=== PATIENT | male | born 1965 | race Caucasian/White ===

== ENCOUNTER 2016-09-20 02:21 | Inpatient (IN) | payer OTHER, MEDICARE ==
[2016-09-20] VITALS (7 sets, daily range): BP systolic 128–170; BP diastolic 74–90; PULSE 67–83; RESP 17–20; TEMP 96–98.2; O2SAT 2–100
[~2016-09-20] VITALS: Ht 185.4 cm; Wt 94.9 kg
[~2016-09-20 02:21] MED LIST: ALPR.25 PO; ATOR80TA PO; GABA600T PO; IBUP600T26 PO; PANT20 PO; PERC5TAB12 PO; SERO400T PO; TEMA15 PO; TIZA4 PO; TOPA25TA8 PO; VENL-39 PO; XANA1TAB6 PO; [UNRECOGNIZED DRUG - CODE] PO
[2016-09-20] MEDS ORDERED: SODIUM CHLOR 0.45% 1000 ML INJ 1,000 ML IV SCH (02:55)
[2016-09-20] MEDS ORDERED: ACETAMINOPHEN 325 MG TAB PO PRN (03:00)
[2016-09-20] MEDS ORDERED: ONDANSETRON HCL 4 MG/2 ML VIAL IVP PRN (03:00)
[2016-09-20] MEDS ORDERED: NALOXONE HCL 0.4 MG/ML AMP IV PRN (03:00)
[2016-09-20] MEDS ORDERED: SODIUM CHLORIDE 0.9% FLUSH 10 ML FLUSH IV FLUSH PRN (03:00)
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
[2016-09-20] MEDS: MORPHINE SULFATE 4 MG/ML INJ IV PUSH PRN ×4 (04:33→21:21)
[2016-09-20] MEDS: ACETAMINOPHEN/HYDROcodone 325 MG/5 MG TAB PO PRN ×2 (06:13→10:44)
[2016-09-20] MEDS: SODIUM CHLORIDE 0.9% FLUSH 10 ML FLUSH IV FLUSH SCH ×2 (08:24→21:00)
[2016-09-20] MEDS ORDERED: ALPR.25 PO (08:56)
[2016-09-20] MEDS ORDERED: XANA1TAB2 PO (09:02)
[2016-09-20] MEDS ORDERED: [UNRECOGNIZED DRUG - CODE] (09:26)
[2016-09-20] MEDS ORDERED: ATOR1TAB18 PO (09:26)
[2016-09-20] MEDS ORDERED: GABA600T PO (09:26)
[2016-09-20] MEDS ORDERED: TIZA4 PO (09:26)
[2016-09-20] MEDS ORDERED: REST15CA PO (09:26)
[2016-09-20] MEDS ORDERED: SERO400T PO (09:26)
[2016-09-20] MEDS ORDERED: TOPA25TA8 PO (09:26)
[2016-09-20] MEDS ORDERED: VENL75TA PO (09:26)
[2016-09-20] MEDS ORDERED: IBUP-232 PO (09:26)
[2016-09-20] MEDS ORDERED: PROT40TA PO (09:26)
[2016-09-20] MEDS: TOPIRAMATE 25 MG TAB PO SCH (10:44)
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
[2016-09-20] MEDS ORDERED: ePHEDrine/NS 25 MG/5 ML SYR IV ONE (12:00)
[2016-09-20] MEDS ORDERED: PHENYLEPH/NS 1000 MCG/10 ML SYR IV ONE (12:00)
[2016-09-20] MEDS ORDERED: LACTATED RINGER'S 1000 ML INJ 1,000 ML IV ONE (12:00)
[2016-09-20] MEDS ORDERED: PROPOFOL 200 MG/20 ML AMP IV ONE (12:00)
[2016-09-20] MEDS ORDERED: KETOROLAC TROMETHAMINE 60 MG/2 ML (IM) VIAL IM ONE (12:00)
[2016-09-20] MEDS ORDERED: ONDANSETRON HCL 4 MG/2 ML VIAL IV PUSH ONE (12:00)
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
[2016-09-20] MEDS: GABAPENTIN 300 MG CAP PO SCH ×2 (13:31→18:00)
[2016-09-20] MEDS: ALPRAZolam 1 MG TAB PO SCH ×3 (13:31→21:30)
[2016-09-20] MEDS: NICOTINE 21 MG/24 HR PATCH T-DERMAL SCH (13:31)
[2016-09-20] MEDS: ALPRAZolam 0.25 MG TAB PO SCH ×3 (13:31→21:30)
[2016-09-20] MEDS ORDERED: CHLORHEXIDINE GLUCONATE 0.12% 15 ML CUP ONE ×2 (16:46→17:52)
[2016-09-20] MEDS ORDERED: ceFAZolin INJ 1,000 MG VIAL ONE (17:32)
[2016-09-20] MEDS ORDERED: ceFAZolin INJ 1,000 MG VIAL IV ONE (17:35)
[2016-09-20] MEDS ORDERED: LIDOCAINE 2%/EPINEPHrine 1:100,000 30ML MDV INFIL ONE (17:50)
[2016-09-20] MEDS ORDERED: DO NOT ADM ANY ANTICOAGULANT DRUGS PRN (19:06)
[2016-09-20] MEDS ORDERED: BUPIVACAINE/EPINEPHRINE 0.5% PF 30 ML VIAL ONE (19:06)
[2016-09-20] MEDS ORDERED: BUPIVACAINE HCL PF 0.5% 30 ML VIAL INFIL ONE (19:08)
[2016-09-20] MEDS ORDERED: fentaNYL CITRATE 250 MCG/5 ML AMP ONE (19:42)
[2016-09-20] MEDS ORDERED: MIDAZOLAM HCL 2 MG/2 ML VIAL ONE (19:42)
--- NOTE | 2016-09-20 19:42 | HHI.PR ---
Immediate Post Op Note Procedure Date: September 20, 2016 Pre Op Diagnosis: left mandible angle fracture Post Op Diagnosis: jovanni Surgeon: Semaj Kelly Diabetes Trainer(s): aide cabrera Procedure: open reduction internal fixation of left mandible fracture Findings: no tmj dislocation noted Complications: none Estimated blood loss: minimal Anesthesia: General, Local (2%lidocaine with 1:100,000 epi 7 cc; 0.5%marcaine with 1:200,000 epi 4 cc) Drains: None Patient to: PACU Patient Condition: Good Semaj Kelly DMD September 20, 2016 19:42
[2016-09-20] MEDS ORDERED: *MEPERIDINE 25 MG INJ VIAL PERIprocedural Use ONLY ONE (19:52)
[2016-09-20] MEDS: methylPREDNISolone SOD SUCC 125 MG/2 ML VIAL IV SCH ×2 (20:20→21:31)
[2016-09-20] MEDS: VENLAFAXINE HCL XR 75 MG CAP PO SCH (21:30)
[2016-09-20] MEDS: QUEtiapine FUMARATE 200 MG TAB PO SCH (21:30)
[2016-09-20] MEDS: ATORVASTATIN 80 MG TAB PO SCH (21:30)
[2016-09-20] MEDS: REMOVE OLD PATCH T-DERMAL SCH (21:31)
[2016-09-21] VITALS (7 sets, daily range): BP systolic 118–144; BP diastolic 60–86; PULSE 64–89; RESP 16–20; TEMP 95.7–98; O2SAT 92–98
[2016-09-21] MEDS: MORPHINE SULFATE 4 MG/ML INJ IV PUSH PRN ×2 (05:06→11:34)
[2016-09-21] MEDS: ALPRAZolam 1 MG TAB PO SCH ×3 (06:08→20:01)
[2016-09-21] MEDS: ALPRAZolam 0.25 MG TAB PO SCH ×3 (06:08→20:00)
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
[2016-09-21 07:05] LABS: AUTOMATED NEUTROPHIL # 9.6 TH/MM3 (1.8-7.7); BASOPHIL % 0.1 % (0.0-2.0); HEMATOCRIT 39.5 % (39.0-51.0); HEMO FLAGS DIFF FINAL; LYMPH % 2.9 % (9.0-44.0); LYMPHOCYTE # 0.3 TH/MM3 (1.0-4.8); MEAN CELL VOLUME 89.8 FL (80.0-100.0); MEAN CORPUSCULAR HEMOGLOBIN 28.6 PG (27.0-34.0); MEAN CORPUSCULAR HGB CONC 31.9 % (32.0-36.0); MONO % 1.4 % (0.0-8.0); NEUT % 95.6 % (16.0-70.0); PLATELET COUNT 164 TH/MM3 (150-450); RED CELL DISTRIBUTION WIDTH 18.4 % (11.6-17.2)
[2016-09-21 07:27] LABS: BICARBONATE 25.2 MEQ/L (21.0-32.0); POTASSIUM 3.9 MEQ/L (3.5-5.1)
[2016-09-21] MEDS ORDERED: ceFAZolin 1,000 MG/NS 100 ML IV ONE ×2 (07:30)
[2016-09-21] MEDS: SODIUM CHLORIDE 0.9% FLUSH 10 ML FLUSH IV FLUSH SCH ×2 (08:13→20:03)
[2016-09-21] MEDS: GABAPENTIN 300 MG CAP PO SCH ×3 (08:13→18:03)
[2016-09-21] MEDS: TOPIRAMATE 25 MG TAB PO SCH (08:13)
[2016-09-21] MEDS: NICOTINE 21 MG/24 HR PATCH T-DERMAL SCH (08:13)
[2016-09-21] MEDS ORDERED: methylPREDNISolone ACETATE 80 MG/ML VIAL IM ONE (09:00)
[2016-09-21] MEDS: ACETAMINOPHEN/HYDROcodone 325 MG/5 MG TAB PO PRN ×3 (09:57→18:03)
[2016-09-21] MEDS ORDERED: HYDR-3516 PO (11:45)
[2016-09-21] MEDS ORDERED: PERI8.6T PO (11:45)
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
[2016-09-21] MEDS ORDERED: PERI0.126 SWISH-SPIT (12:35)
[2016-09-21] MEDS: VENLAFAXINE HCL XR 75 MG CAP PO SCH (20:00)
[2016-09-21] MEDS: ATORVASTATIN 80 MG TAB PO SCH (20:01)
[2016-09-21] MEDS: REMOVE OLD PATCH T-DERMAL SCH (20:03)
[2016-09-21] MEDS: QUEtiapine FUMARATE 200 MG TAB PO SCH (20:49)
[2016-09-21] MEDS ORDERED: MELATONIN 5 MG TAB PO ONE (21:00)
[2016-09-22] VITALS: BP 135/86; PULSE 76; RESP 18; TEMP 96.7; O2SAT 97
[2016-09-22 04:00] VITALS: BP 150/98; PULSE 87; RESP 20; TEMP 96.7; O2SAT 98
[2016-09-22] MEDS: ACETAMINOPHEN/HYDROcodone 325 MG/5 MG TAB PO PRN ×5 (05:24→22:08)
[2016-09-22] MEDS: ALPRAZolam 0.25 MG TAB PO SCH ×3 (05:24→20:52)
[2016-09-22] MEDS: ALPRAZolam 1 MG TAB PO SCH ×3 (05:24→20:52)
[2016-09-22] MEDS: GABAPENTIN 300 MG CAP PO SCH ×3 (07:42→17:48)
[2016-09-22] MEDS: TOPIRAMATE 25 MG TAB PO SCH (07:43)
[2016-09-22] MEDS: SODIUM CHLORIDE 0.9% FLUSH 10 ML FLUSH IV FLUSH SCH ×2 (07:43→20:48)
[2016-09-22] MEDS: NICOTINE 21 MG/24 HR PATCH T-DERMAL SCH (07:43)
[2016-09-22 08:00] VITALS: BP 160/93; PULSE 76; RESP 21; TEMP 97.3; O2SAT 99
[2016-09-22 10:45] VITALS: O2SAT 99
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
[2016-09-22 17:45] VITALS: BP 165/90; PULSE 70; RESP 20; TEMP 97.9; O2SAT 98
[2016-09-22 19:35] VITALS: BP 176/96; PULSE 77; RESP 16; TEMP 98.5; O2SAT 98
[2016-09-22] MEDS: VENLAFAXINE HCL XR 75 MG CAP PO SCH (20:46)
[2016-09-22] MEDS: ATORVASTATIN 80 MG TAB PO SCH (20:46)
[2016-09-22] MEDS: REMOVE OLD PATCH T-DERMAL SCH (20:52)
[2016-09-22] MEDS: QUEtiapine FUMARATE 200 MG TAB PO SCH (22:08)
[2016-09-23] VITALS: BP 166/98; PULSE 73; RESP 17; TEMP 97.2; O2SAT 97
[2016-09-23] MEDS: ACETAMINOPHEN/HYDROcodone 325 MG/5 MG TAB PO PRN ×3 (02:16→12:11)
[2016-09-23] MEDS: ALPRAZolam 1 MG TAB PO SCH (05:53)
[2016-09-23] MEDS: ALPRAZolam 0.25 MG TAB PO SCH (05:53)
[2016-09-23] MEDS: NICOTINE 21 MG/24 HR PATCH T-DERMAL SCH (07:38)
[2016-09-23] MEDS: GABAPENTIN 300 MG CAP PO SCH (07:39)
[2016-09-23] MEDS: TOPIRAMATE 25 MG TAB PO SCH (07:40)
[2016-09-23 08:00] VITALS: BP 165/93; PULSE 62; RESP 19; TEMP 96; O2SAT 99
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
[2016-09-23] MEDS ORDERED: CHLORHEXIDINE GLUCONATE 0.12% 15 ML CUP SWISH-SPIT SCH (09:00)
[2016-09-23] MEDS: SODIUM CHLORIDE 0.9% FLUSH 10 ML FLUSH IV FLUSH SCH (09:00)
[2016-09-23 09:35] VITALS: O2SAT 98
[2016-09-23 12:00] VITALS: BP 158/72; PULSE 77; RESP 19; TEMP 97.2; O2SAT 98
[2016-09-23 12:48] LABS: HEMOGLOBIN A1a 1.2 %; HEMOGLOBIN A1b 0.9 %; HEMOGLOBIN Ao 85.4 %; HEMOGLOBIN F 1.1 %; HEMOGLOBIN P3 3.6 %
== END 2016-09-23 13:39 | disposition home or self-care (01) | DRG 132 ==
LOC: NEPC 02:21 → NEDA 02:51 → N06A 05:55
PROVIDERS: ADMIT Hospitalist; ATTEND Hospitalist
PROC: 0NSV04Z Reposition Left Mandible with Internal Fixation Device, Open Approach (ICD-10-PCS; principal; 2016-09-20 17:19)
DX: S02.652A Fracture of angle of left mandible, initial encounter for closed fracture (principal); I10 Essential (primary) hypertension; Y92.9 Unspecified place or not applicable; Y04.2XXA Assault by strike against or bumped into by another person, initial encounter; F31.9 Bipolar disorder, unspecified; F32.9 Major depressive disorder, single episode, unspecified; G47.33 Obstructive sleep apnea (adult) (pediatric); F17.210 Nicotine dependence, cigarettes, uncomplicated; F43.10 Post-traumatic stress disorder, unspecified; F41.9 Anxiety disorder, unspecified; J45.909 Unspecified asthma, uncomplicated; K21.9 Gastro-esophageal reflux disease without esophagitis; E78.5 Hyperlipidemia, unspecified; F10.10 Alcohol abuse, uncomplicated; G47.00 Insomnia, unspecified; F12.90 Cannabis use, unspecified, uncomplicated; H11.31 Conjunctival hemorrhage, right eye; R73.9 Hyperglycemia, unspecified; T38.0X5A Adverse effect of glucocorticoids and synthetic analogues, initial encounter
CPT/HCPCS: 80048; 83036; 85025; 99284; C1713; J0690; J1040; J1885; J2175; J2250; J2270; J2370; J2405; J2930; J3010; J7120

== ENCOUNTER 2017-01-09 12:59 | Observation (INO) | payer OTHER ==
[~2017-01-09] VITALS: Ht 180.3 cm; Wt 90.4 kg
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
[~2017-01-09 12:59] MED LIST changes: +ATOR1TAB18 PO; -ATOR80TA PO; +CHLORHEXIDINE GLUCONATE 0.12% 15 ML CUP ONE; +HYDR-3516 PO; +IBUP-232 PO; -IBUP600T26 PO; +LIDOCAINE 2%/EPINEPHrine PF 1:200,000 20ML SDV ONE; +ONDANSETRON HCL 4 MG/2 ML VIAL IV PUSH ONE; -PANT20 PO; -PERC5TAB12 PO; +PERI0.126 SWISH-SPIT; +PERI8.6T PO; +PROPOFOL 200 MG/20 ML AMP IV ONE; +PROT40TA PO; -TEMA15 PO; -VENL-39 PO; +VENL75TA PO; +XANA1TAB2 PO; -XANA1TAB6 PO; +[UNRECOGNIZED DRUG - CODE]; -[UNRECOGNIZED DRUG - CODE] PO; +ePHEDrine/NS 25 MG/5 ML SYR IV ONE
[2017-01-09] MEDS ORDERED: ceFAZolin 1,000 MG/NS 100 ML IV SCH ×2 (14:00)
[2017-01-09] MEDS ORDERED: CHLORHEXIDINE GLUCONATE 2 % 1 PACK (2 CLOTHS) TOPICAL PRN (14:00)
[2017-01-09] MEDS ORDERED: SODIUM CHLORID 0.9% 500 ML IV PRN (14:00)
[2017-01-09] MEDS ORDERED: INSULIN HUMAN REGULAR 1,000 UNITS/10 ML VIAL SQ PRN (14:00)
[2017-01-09] MEDS ORDERED: POVIDONE IODINE 5% (ANTISEPSIS KIT) 4 APPLICATIONS EACH NARE PRN (14:00)
[2017-01-09] MEDS ORDERED: LACTATED RINGER'S 1000 ML IV PRN (14:00)
[2017-01-09] MEDS ORDERED: VENTAER INH (14:05)
[2017-01-09] MEDS ORDERED: DIPH25CA PO (14:05)
[2017-01-09] MEDS ORDERED: HYDR-3583 PO (14:05)
[2017-01-09 14:23] LABS: AUTOMATED NEUTROPHIL # 2.8 TH/MM3 (1.8-7.7); BASOPHIL % 0.9 % (0.0-2.0); EOSINOPHIL # 0.3 TH/MM3 (0-0.4); HEMO FLAGS DIFF FINAL; LYMPH % 25.6 % (9.0-44.0); LYMPHOCYTE # 1.3 TH/MM3 (1.0-4.8); MEAN CELL VOLUME 93.3 FL (80.0-100.0); MEAN CORPUSCULAR HEMOGLOBIN 31.2 PG (27.0-34.0); MEAN CORPUSCULAR HGB CONC 33.5 % (32.0-36.0); MONO % 10.9 % (0.0-8.0); NEUT % 56.6 % (16.0-70.0); PLATELET COUNT 199 TH/MM3 (150-450); RED BLOOD COUNT 3.97 MIL/MM3 (4.50-5.90); RED CELL DISTRIBUTION WIDTH 15.6 % (11.6-17.2)
--- NOTE | 2017-01-09 14:27 | RADRPT ---
EXAM DATE/TIME: 01/09/2017 13:32 [place] COMPARISON: No previous studies available for comparison. INDICATIONS : Evaluate for pneumonia, pneumothorax or communicable disease. Preop chest for mandible surgery today MEDICAL HISTORY : None. SURGICAL HISTORY : None. ENCOUNTER: Initial ACUITY: 1 day PAIN SCORE: 0/10 LOCATION: Bilateral chest FINDINGS: A single view of the chest demonstrates the lungs to be symmetrically aerated without evidence of mas s, infiltrate or effusion. The cardiomediastinal contours are unremarkable. Osseous structures are intact. CONCLUSION: No acute disease. Kuldeep Figueroa MD FACR on January 09, 2017 at 14:25 Board Certified Radiologist. This report was verified electronically.
[2017-01-09] MEDS ORDERED: DOCUSATE SODIUM 50 MG/SENNA 8.6 MG TAB PO PRN (15:00)
[2017-01-09] MEDS ORDERED: ACETAMINOPHEN/HYDROcodone 325 MG/5 MG TAB PO PRN (15:00)
[2017-01-09] MEDS: SODIUM CHLOR 0.9% 1000 ML INJ 1,000 ML IV SCH (15:38)
[2017-01-09] MEDS ORDERED: RESP: ALBUTEROL 2.5 MG/3 ML NEB (SCH) ONE (15:43)
[2017-01-09] MEDS ORDERED: FLUMAZENIL 0.5 MG/5 ML VIAL IV PUSH PRN (15:45)
[2017-01-09] MEDS ORDERED: LORazepam 1 MG TAB PO PRN (15:45)
[2017-01-09] MEDS ORDERED: NALOXONE HCL 0.4 MG/ML AMP IV PRN (15:45)
[2017-01-09] MEDS ORDERED: LORazepam 2 MG TAB PO PRN (15:45)
[2017-01-09] MEDS ORDERED: PROCHLORPERAZINE 25 MG SUPP RECTAL PRN (15:45)
[2017-01-09] MEDS ORDERED: ACETAMINOPHEN 325 MG TAB PO PRN (15:45)
[2017-01-09] MEDS ORDERED: LACTULOSE SYRUP 20 GM/30 ML CUP PO PRN (15:45)
[2017-01-09] MEDS ORDERED: ONDANSETRON HCL 4 MG/2 ML VIAL IVP PRN (15:45)
[2017-01-09] MEDS ORDERED: oxyCODONE/ACETAMINOPHEN 5 MG/325 MG TAB PO PRN (15:45)
[2017-01-09] MEDS ORDERED: SODIUM CHLORIDE 0.9% FLUSH 10 ML FLUSH IV FLUSH PRN ×2 (15:45)
[2017-01-09] MEDS ORDERED: MAGNESIUM HYDROXIDE SUSP 30 ML CUP PO PRN (15:45)
[2017-01-09] MEDS ORDERED: MORPHINE SULFATE 4 MG/ML INJ IV PRN ×2 (15:45)
[2017-01-09] MEDS ORDERED: BISACODYL 10 MG SUPP RECTAL PRN (15:45)
[2017-01-09] MEDS ORDERED: ONDANSETRON HCL 4 MG/2 ML VIAL IV PRN (15:45)
[2017-01-09] MEDS ORDERED: LORazepam 2 MG/ML VIAL IV PUSH PRN ×4 (15:45)
[2017-01-09] MEDS ORDERED: SENNOSIDES 8.6 MG TAB PO PRN (15:45)
[2017-01-09] MEDS ORDERED: cloNIDine HCL 0.1 MG TAB PO PRN (15:45)
[2017-01-09] MEDS ORDERED: LIDOCAINE 2%/EPINEPHrine PF 1:200,000 20ML SDV ONE (16:01)
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
[2017-01-09] MEDS ORDERED: GELATIN 12 MM/7 MM FOAM ONE (17:28)
[2017-01-09] MEDS ORDERED: CHLORHEXIDINE GLUCONATE 0.12% 15 ML CUP ONE (17:31)
[2017-01-09] MEDS ORDERED: GELFOAM SIZE 100 ONE (17:32)
[2017-01-09] MEDS: GABAPENTIN 300 MG CAP PO SCH (18:00)
[2017-01-09] MEDS ORDERED: ALPRAZolam 1 MG TAB PO PRN (18:00)
[2017-01-09] MEDS ORDERED: ALPRAZolam 0.25 MG TAB PO PRN (18:00)
[2017-01-09] MEDS ORDERED: BUPIVACAINE HCL PF 0.5% 30 ML VIAL ONE (18:32)
[2017-01-09] MEDS ORDERED: BENZOCAINE 20% TOPICAL SPRAY 60 ML CAN TOPICAL ONE (18:32)
[2017-01-09] MEDS ORDERED: BUPIVACAINE/EPINEPHRINE 0.5% PF 10 ML VIAL INFIL ONE (18:41)
[2017-01-09] MEDS ORDERED: DO NOT ADM ANY ANTICOAGULANT DRUGS PRN (18:51)
--- NOTE | 2017-01-09 19:27 | HHI.PR ---
Immediate Post Op Note Procedure Date: Jan 09, 2017 Pre Op Diagnosis: failed hardware , left mandible, non union of left mandible angle fracture tooth #17 in the line of fracture Post Op Diagnosis: jovanni Surgeon: Semaj Kelly Fisher Mussel(s): aide cabrera Procedure: ORIF left mandible angle fracture removal of failed hardware left mandible surgical extraction of tooth #17 Findings: non union of fracture left mandible loose hardware left mandible, #17 in the line of fracture Complications: none Estimated blood loss: 10 cc Anesthesia: General, Local (2%lidocaine with 1:200,000 epi 7cc; 0.5 % marcaine with 1:200,000 epi 3 cc) Drains: None Patient to: PACU Patient Condition: Good Implant/Devices: SEE IMPLANT LOG (if applicable) Date/Time of Procedure: SEE SURGICAL CARE RECORD Semaj Kelly DMD Jan 09, 2017 19:26
[2017-01-09] MEDS ORDERED: *morphine SULFATE 8 MG/ML PERIprocedure ONLY ONE (20:32)
[2017-01-09] MEDS: VENLAFAXINE HCL XR 37.5 MG CAP PO SCH (21:00)
[2017-01-09] MEDS ORDERED: SODIUM CHLORIDE 0.9% FLUSH 10 ML FLUSH IV FLUSH SCH (21:00)
[2017-01-10] VITALS (9 sets, daily range): BP systolic 129–166; BP diastolic 78–101; PULSE 71–86; RESP 18; TEMP 96.3–97.4; O2SAT 94–100
[2017-01-10] MEDS: oxyCODONE/ACETAMINOPHEN 10 MG/325 MG TAB PO PRN ×4 (00:02→18:32)
[2017-01-10] MEDS: QUEtiapine FUMARATE 200 MG TAB PO SCH ×2 (00:54→21:16)
[2017-01-10] MEDS: DOCUSATE SODIUM 50 MG/SENNA 8.6 MG TAB PO SCH ×3 (00:54→21:16)
[2017-01-10] MEDS: ATORVASTATIN 80 MG TAB PO SCH ×2 (00:54→21:16)
[2017-01-10] MEDS: SODIUM CHLORIDE 0.9% FLUSH 10 ML FLUSH IV FLUSH SCH ×3 (00:55→21:15)
[2017-01-10] MEDS: CHLORHEXIDINE 0.12% (ORAL KIT) 15 ML CUP SWISH-SPIT SCH ×2 (00:55→08:53)
[2017-01-10] MEDS: methylPREDNISolone SOD SUCC 125 MG/2 ML VIAL IV SCH ×2 (00:55→06:09)
[2017-01-10] MEDS: SODIUM CHLOR 0.9% 1000 ML INJ 1,000 ML IV SCH ×3 (01:38→21:38)
[2017-01-10] MEDS: MORPHINE SULFATE 4 MG/ML INJ IV PRN ×4 (02:31→21:18)
--- NOTE | 2017-01-10 07:53 | HHI.PR ---
Subjective Remarks POD 1 s/p removal of failed hardware left mandible, ORIF left mandible angle fracture and extraction of tooth #17 pt seen and examined, AAox3, nad reports wire poking cheek after removal; of gauze denies f/c/n/v/sob/difficulty breathing/difficulty swallowing tolerating po well, ambulating, voiding Objective Vital Signs Date Time Temp Pulse Resp B/P (MAP) Pulse Ox O2 Delivery O2 Flow Rate FiO2 01/10/17 04:17 97.1 86 18 133/78 (96) 100 01/10/17 00:50 96.7 76 18 166/97 (120) 100 01/09/17 22:30 98.2 82 15 134/82 (99) 96 Nasal Cannula 2 01/09/17 21:00 78 13 127/84 (98) 96 Nasal Cannula 3 01/09/17 20:00 77 11 125/84 (98) 94 Nasal Cannula 3 01/09/17 19:45 75 11 138/85 (102) 95 Nasal Cannula 3 01/09/17 19:30 76 12 144/91 (108) 95 Nasal Cannula 3 01/09/17 19:15 75 14 171/84 (113) 95 Nasal Cannula 3 01/09/17 19:00 97.8 89 15 173/110 (131) 96 3 01/09/17 13:55 97.6 62 16 125/75 (92) 96 I/O 01/09/17 01/09/17 01/09/17 01/10/17 01/10/17 01/10/17 07:00 15:00 23:00 07:00 15:00 23:00 Intake Total 1000 ml 560 ml Output Total 150 ml Balance 850 ml 560 ml Intake Oral 560 ml IV Total 1000 ml Output Estimated Blood Loss 150 ml # Voids 2 # Bowel Movements 1 Result Diagram: 01/09/17 1350 Objective Remarks no facial edema intraorally sx.extraction sites hemostatic all wound margins well approximated, sutures intact hemostatic good range of opening and closing, no deviation bite in occlusion, post. oropharynx clear arch bars and wires in position,tissues pink/well perfused no elevation fom/tongue Assessment and Plan Assessment and Plan POD 1 s/p removal of failed hardware left mandible, ORIF left mandible angle fracture and extraction of tooth #17 to f/up Monday01-13-17 dr kelly full liquid diet, no strenuous activity /exercises placed elastic band in mouth and wax on arch bar no smoking, maintain good oral hygiene Semaj Kelly DMD Jan 10, 2017 07:53
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
[2017-01-10 08:48] LABS: AUTOMATED NEUTROPHIL # 10.5 TH/MM3 (1.8-7.7); BASOPHIL % 0.1 % (0.0-2.0); HEMATOCRIT 40.4 % (39.0-51.0); HEMO FLAGS DIFF FINAL; LYMPH % 4.6 % (9.0-44.0); LYMPHOCYTE # 0.5 TH/MM3 (1.0-4.8); MEAN CELL VOLUME 93.5 FL (80.0-100.0); MEAN CORPUSCULAR HEMOGLOBIN 30.9 PG (27.0-34.0); MEAN CORPUSCULAR HGB CONC 33.1 % (32.0-36.0); MONO % 1.3 % (0.0-8.0); PLATELET COUNT 195 TH/MM3 (150-450); RED BLOOD COUNT 4.33 MIL/MM3 (4.50-5.90); RED CELL DISTRIBUTION WIDTH 15.6 % (11.6-17.2); WHITE BLOOD COUNT 11.2 TH/MM3 (4.0-11.0)
[2017-01-10] MEDS: GABAPENTIN 300 MG CAP PO SCH ×3 (08:50→18:31)
[2017-01-10] MEDS: PANTOPRAZOLE SOD 40 MG DELAYED RELEASE TAB PO SCH (08:51)
[2017-01-10] MEDS: TOPIRAMATE 25 MG TAB PO SCH (08:51)
[2017-01-10] MEDS: FOLIC ACID 1 MG TAB PO SCH (08:51)
[2017-01-10] MEDS: MULTIVITAMINS/MINERALS THERAPEUTIC TAB PO SCH (08:51)
[2017-01-10] MEDS: THIAMINE HCL 100 MG TAB PO SCH (08:52)
[2017-01-10] MEDS: CHLORHEXIDINE GLUCONATE 0.12% 15 ML CUP SWISH-SPIT SCH ×2 (08:57→18:00)
[2017-01-10] MEDS ORDERED: PANTOPRAZOLE SOD 40 MG DELAYED RELEASE TAB PO SCH (09:00)
[2017-01-10] MEDS ORDERED: methylPREDNISolone ACETATE 80 MG/ML VIAL IM ONE (09:00)
[2017-01-10 09:06] LABS: ANION GAP 8 MEQ/L (5-15); AST (GOT) 42 U/L (15-37); BICARBONATE 25.6 MEQ/L (21.0-32.0); BLOOD UREA NITROGEN 10 MG/DL (7-18); CHLORIDE 106 MEQ/L (98-107); GLOMERULAR FILTRATION RATE 77 ML/MIN (>89); POTASSIUM 3.9 MEQ/L (3.5-5.1); SODIUM (NA) 140 MEQ/L (136-145)
[2017-01-10 09:07] LABS: ALT (GPT) 34 U/L (12-78)
[2017-01-10 09:16] LABS: ALKALINE PHOSPHATASE 72 U/L (45-117); FREE T4 0.82 NG/DL (0.76-1.46); TOTAL BILIRUBIN ADULT 0.4 MG/DL (0.2-1.0)
[2017-01-10 12:15] LABS: HEMOGLOBIN A1a 1.3 %; HEMOGLOBIN A1b 0.8 %; HEMOGLOBIN Ao 84.1 %; HEMOGLOBIN F 1.3 %; HEMOGLOBIN LA1C 2.8 %; HEMOGLOBIN P3 3.8 %
--- NOTE | 2017-01-10 13:08 | EKG ---
Date Performed: 01/09/2017 Time Performed: 13:59:22 PTAGE: 51 years EKG: Sinus rhythm NORMAL ECG NO PREVIOUS TRACING DOCTOR: Sulma Greene Interpretating Date/Time 01/10/2017 13:05:40
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
[2017-01-10] MEDS: VENLAFAXINE HCL XR 37.5 MG CAP PO SCH (21:16)
[2017-01-11] MEDS: oxyCODONE/ACETAMINOPHEN 10 MG/325 MG TAB PO PRN ×3 (00:22→11:56)
[2017-01-11 00:30] VITALS: PULSE 79
[2017-01-11 03:20] VITALS: BP 154/99; PULSE 70; RESP 18; TEMP 96.7; O2SAT 98
[2017-01-11] MEDS: MORPHINE SULFATE 4 MG/ML INJ IV PRN (03:23)
[2017-01-11 04:45] VITALS: BP 149/89
--- NOTE | 2017-01-11 07:37 | HHI.PR ---
Subjective Remarks POD 2 s/p removal of failed hardware left mandible, ORIF left mandible angle fracture and extraction of tooth #17 pt seen and examined, AAox3, nad reports wire poking cheek after removal; of gauze denies f/c/n/v/sob/difficulty breathing/difficulty swallowing tolerating po well, ambulating, voiding wants to go home, talking on the phone Objective Vital Signs Date Time Temp Pulse Resp B/P (MAP) Pulse Ox O2 Delivery O2 Flow Rate FiO2 01/11/17 04:45 149/89 (109) 01/11/17 03:20 96.7 70 18 154/99 (117) 98 01/11/17 00:30 79 01/10/17 23:41 96.7 71 18 129/78 (95) 96 01/10/17 22:29 97 01/10/17 20:00 83 01/10/17 19:14 97.4 71 18 161/93 (115) 97 01/10/17 16:00 97.3 76 18 161/101 (121) 97 01/10/17 12:00 96.8 85 18 143/89 (107) 94 01/10/17 08:00 96.3 77 18 157/96 (116) 97 I/O 01/10/17 01/10/17 01/10/17 01/11/17 01/11/17 01/11/17 06:59 14:59 22:59 06:59 14:59 22:59 Intake Total 560 ml 600 ml 600 ml 240 ml Balance 560 ml 600 ml 600 ml 240 ml Intake Oral 560 ml 600 ml 600 ml 240 ml # Voids 2 3 2 2 # Bowel Movements 1 1 0 0 Result Diagram: 01/10/17 0758 01/10/17 0758 Procedures Status post removal of the Plate of the left mandible and placed a new plate on the left mandible removal of tooth #17. Objective Remarks no facial edema intraorally sx.extraction sites hemostatic all wound margins well approximated, sutures intact hemostatic good range of opening and closing, no deviation, elastics in place bite in occlusion, post. oropharynx clear arch bars and wires in position,tissues pink/well perfused no elevation fom/tongue Assessment and Plan Assessment and Plan POD 2 s/p removal of failed hardware left mandible, ORIF left mandible angle fracture and extraction of tooth #17 to f/up Monday01-13-17 dr kelly full liquid diet, no strenuous activity /exercises send pt home with elastics/wax - at bedside no smoking, maintain good oral hygiene Semaj Kelly DMD Jan 11, 2017 07:37
[2017-01-11 08:00] VITALS: BP 161/106; PULSE 65; RESP 18; TEMP 95.9; O2SAT 97
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
[2017-01-11] MEDS: SODIUM CHLORIDE 0.9% FLUSH 10 ML FLUSH IV FLUSH SCH (09:00)
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
[2017-01-11] MEDS: CHLORHEXIDINE GLUCONATE 0.12% 15 ML CUP SWISH-SPIT SCH (10:07)
[2017-01-11] MEDS: THIAMINE HCL 100 MG TAB PO SCH (10:07)
[2017-01-11] MEDS: DOCUSATE SODIUM 50 MG/SENNA 8.6 MG TAB PO SCH (10:08)
[2017-01-11] MEDS: PANTOPRAZOLE SOD 40 MG DELAYED RELEASE TAB PO SCH (10:08)
[2017-01-11] MEDS: GABAPENTIN 300 MG CAP PO SCH (10:08)
[2017-01-11] MEDS: MULTIVITAMINS/MINERALS THERAPEUTIC TAB PO SCH (10:08)
[2017-01-11] MEDS: FOLIC ACID 1 MG TAB PO SCH (10:08)
[2017-01-11] MEDS: TOPIRAMATE 25 MG TAB PO SCH (10:08)
== END 2017-01-11 12:19 | disposition home or self-care (01) ==
LOC: HSDC 12:59 → HSDI 15:44 → N06A 22:46
PROVIDERS: ADMIT Internal Medicine; ATTEND Internal Medicine
DX: S00-T88 Injury, poisoning and certain other consequences of external causes (principal); T84.69XD Infection and inflammatory reaction due to internal fixation device of other site, subsequent encounter; S02.652K Fracture of angle of left mandible, subsequent encounter for fracture with nonunion; F43.10 Post-traumatic stress disorder, unspecified; F10.10 Alcohol abuse, uncomplicated; F17.210 Nicotine dependence, cigarettes, uncomplicated; J44.9 Chronic obstructive pulmonary disease, unspecified; Z91.19 Patient's noncompliance with other medical treatment and regimen; Y09 Assault by unspecified means; F32.9 Major depressive disorder, single episode, unspecified; Z01.810 Encounter for preprocedural cardiovascular examination
CPT/HCPCS: 00190; 21462; 41899; 71010; 80053; 83036; 83735; 84100; 84439; 84443; 85025; 93005; C1713; G0378; J0690; J1040; J2270; J2405; J2930; J3010; J7120; J7613